=== PATIENT | female | born 1950 | race Caucasian/White ===

== ENCOUNTER 2020-03-18 13:46 | Emergency (ER) | payer MEDICARE ==
[~2020-03-18] VITALS: Ht 162.6 cm; Wt 95.0 kg
[2020-03-18] MEDS ORDERED: DIPHENHYDRAMINE 25MG CAPSULE PO ONE (15:00)
[2020-03-18] MEDS ORDERED: PREDNISONE 20MG TABLET PO ONE (15:00)
[2020-03-18] MEDS ORDERED: EPIN0.3A3 IM (18:07)
[2020-03-18] MEDS ORDERED: P20 MT (18:08)
[2020-03-18 18:30] VITALS: BP 144/67
== END 2020-03-18 19:12 | disposition home or self-care (01) ==
LOC: ER 13:46
DX: T78.40XA Allergy, unspecified, initial encounter (principal); I10 Essential (primary) hypertension; Z88.0 Allergy status to penicillin; Z88.6 Allergy status to analgesic agent; X58.XXXA Exposure to other specified factors, initial encounter
CPT/HCPCS: 99283; J7512; Q0163